=== PATIENT | female | born 1995 | race Asian ===

== ENCOUNTER 2017-04-27 21:34 | Emergency (ER) | payer BC ==
[~2017-04-27] VITALS: Ht 154.9 cm; Wt 51.2 kg
[2017-04-27 21:38] VITALS: TEMP 37; Ht 154.9 cm; Wt 51.2 kg
[2017-04-27] MEDS ORDERED: MACROBID 100MG HOME PACK 1 EA VIAL PO ONE (22:15)
[2017-04-27] MEDS ORDERED: PHENAZOPYRIDINE HOME PACK 200 MG VIAL PO ONE (22:15)
[2017-04-27] MEDS ORDERED: MACROBID 100MG HOME PACK 1 EA VIAL ONE (22:16)
[2017-04-27] MEDS ORDERED: NITR-5 PO (22:22)
[2017-04-27] MEDS ORDERED: PHEN-876 PO (22:22)
--- NOTE | 2017-04-27 22:23 | EMERGENCY ROOM VISIT NOTE ---
History First contact with patient: 21:43 Chief Complaint: DYSURIA Stated Complaint: BURNING SENSATION WHEN PEEING Nursing Triage Summary: pt states burning during urination x 3 days, pt denies frequency or urgency, pt states no abdominal pain. History of Present Illness The patient is a 22 year old female who presents to the Emergency Room with complaints of dysuria which started 3 days ago. The patient reports that she has had burning with urination for the past 3 days. She states she has been having chills but denies fevers. She has had some feelings of incomplete emptying. She denies abdominal pain or back pain. She does report she recently became sexually active with her boyfriend. She denies any history of urinary tract infections. She denies any abnormal vaginal discharge or blood in the urine. Review of Systems A complete 10 point review of systems was reviewed with the patient with pertinent positives and negatives as per history of present illness. All else were negative. Social History Smoking Status: Never Smoker Current/Historical Medications Scheduled Nitrofurantoin Monohyd Macrocr (Macrobid), 100 MG PO BID Phenazopyridine HCl (Pyridium), 200 MG PO TID Physical Exam Vital Signs Date Time Temp Pulse Resp B/P (MAP) Pulse Ox O2 Delivery O2 Flow Rate FiO2 04/27/17 21:38 37.0 76 18 113/67 97 Room Air Physical Exam VITALS: Vitals are noted on the nurse's note and reviewed by myself. Vital signs stable. GENERAL: This is a 22-year-old female, in no acute distress, nondiaphoretic, well-developed well-nourished. HEART: Regular rate and rhythm without murmurs gallops or rubs. LUNGS: Clear to auscultation bilaterally without wheezes, rales or rhonchi. ABDOMEN: Soft, nontender to palpation. NEURO: Patient was alert and oriented to person place and time. Medical Decision & Procedures Laboratory Results Test 04/27/17 21:58 Urine Test NEG (NEG) Medications Administered Medications (Trade) Dose Ordered Sig/Ender Route Start Time Stop Time Status Last Admin Dose Admin Nitrofurantoin (Macrobid Homepack 100MG) 1 homepack UD ONCE PO 04/27/17 22:15 04/27/17 22:16 DC 04/27/17 22:19 1 HOMEPACK Phenazopyridine HCl (Phenazopyridine HCl 200MG Home Pack) 1 homepack UD ONCE PO 04/27/17 22:15 04/27/17 22:16 DC 04/27/17 22:19 1 HOMEPACK Medical Decision Differential diagnosis includes urinary tract infection, vaginal infection, urethritis, among others. The patient was evaluated as above. Urine dip showed leukocytes. Symptoms are consistent with urinary tract infection. Patient will be placed on Macrobid. She was given Pyridium for symptomatic relief. She was instructed to return for vomiting, back pain, abdominal pain or fevers. She verbalized understanding of my assessment and treatment plan and was discharged home in good condition. Medication Reconcilliation Current Medication List: was personally reviewed by me Blood Pressure Screening Patient's blood pressure: Normal blood pressure Impression Primary Impression: Urinary tract infection Departure Information Dispostion Home / Self-Care Condition GOOD Prescriptions Phenazopyridine HCl (Pyridium) 200 Mg Tab 200 MG PO TID for 2 Days, #6 TAB Prov: Mary Rodriguez .DIANE 04/27/17 Nitrofurantoin Monohyd Macrocr (Macrobid) 100 Mg Cap 100 MG PO BID for 6 Days, #12 CAP Prov: Mary Rodriguez .DIANE 04/27/17 Referrals No Doctor, Assigned (PCP) Patient Instructions My [facility] Additional Instructions You have been treated in the Emergency Department for a Urinary Tract Infection (UTI). You have been prescribed Macrobid to be taken twice daily for a total of 7 days. This is an antibiotic. All antibiotics have the potential to cause diarrhea. Stop this medication and contact a medical provider if you were to develop any significant adverse side effects including: wheezing, shortness of breath, passing out, vomiting, or a diffuse rash. Always take antibiotics as directed and COMPLETE the ENTIRE course regardless of the improvement of your symptoms. You have been prescribed Pyridium to be taken as prescribed. This medicine will help with the urinary symptoms that you have been experiencing. Be aware that Pyridium may turn your urine a red-orange or brown color. This effect is harmless. Drink plenty of water and stay well hydrated. As with any trip to the Emergency Department, you should follow-up with your Primary Care Provider from today's visit. Return to the emergency department if your symptoms persist despite treatment plan outlined above or if the following symptoms occur: increased fevers, chills , low back pain, nausea/vomiting, or blood in your urine. Problem Qualifiers Primary Impression: Urinary tract infection Urinary tract infection type: acute cystitis Hematuria presence: with hematuria Qualified Codes: N30.01 - Acute cystitis with hematuria
[2017-04-27 22:29] VITALS: BP 113/67; PULSE 76; O2SAT 97
== END 2017-04-27 22:29 | disposition home or self-care (01) ==
LOC: C.EDB 21:37 → C.EDA 22:29
DX: N39.0 Urinary tract infection, site not specified (principal)

== ENCOUNTER 2017-07-08 17:17 | Emergency (ER) | payer BC, OTHER ==
[~2017-07-08] VITALS: Ht 157.5 cm; Wt 50.0 kg
[2017-07-08 17:21] VITALS: TEMP 36.6; Ht 157.5 cm; Wt 50.0 kg
[2017-07-08] MEDS ORDERED: BCPILLS PO (17:46)
[2017-07-08] MEDS ORDERED: IBUP-1050 PO (17:46)
[2017-07-08] MEDS ORDERED: PHEN-876 PO (18:40)
[2017-07-08] MEDS ORDERED: NITR-5 PO (18:40)
--- NOTE | 2017-07-08 18:41 | EMERGENCY ROOM VISIT NOTE ---
ED Visit Note First contact with patient: 17:28 CHIEF COMPLAINT: Frequent and painful urination for 1 day HISTORY OF PRESENT ILLNESS: Patient is a 22-year-old female who presents to the emergency department for burning with urination and urinary frequency. Her symptoms started last evening. She states that she went to the bathroom, then immediately felt the urge that she needed to urinate again. Since then she has had burning with urination. She is on control pills and is presently menstruating, is unsure whether she has any hematuria. She denies any difficulty urinating, fever, chills, nausea, vomiting or vaginal discharge. She is sexually active, occasionally uses a condom and is not concerned regarding any sexually transmitted infections. She states she was treated for similar symptoms last April. REVIEW OF SYSTEMS: Review of systems as per HPI. All other systems reviewed were negative. At least 6 systems reviewed. PMH: Electronic medical records are reviewed and summarized as above/below. See Problem List. SOCIAL HISTORY: Patient is a college student, lives locally. Former smoker. PHYSICAL EXAM: Vital Signs: Reviewed Nurse's notes. CONSTITUTIONAL: Patient is a well-appearing 22-year-old female who is awake and alert and in no acute distress. HEART: Regular rate and rhythm. LUNGS: Clear to auscultation. ABDOMEN: Bowel sounds are present. Abdomen is soft, nontender nondistended. No guarding or rebound. No CVA tenderness. EMERGENCY DEPARTMENT COURSE: Urine dip shows WBCs and hematuria. Nitrate test is negative. Urine test is negative. Patient did well on Macrobid and Pyridium last year. Conservative care measures were discussed. She was educated on the worrisome signs or symptoms for which she should return to the emergency department. Differential diagnoses entertained included UTI, cystitis , pyelonephritis, renal colic, vaginitis, PID, STI, among others. Medication reconciliation: I attest that I have personally reviewed the patient' s current medication list. Blood pressure screening : Patient was found to have normal blood pressure on screening and does not require follow-up. Problem List Medical Problems: (1) Urinary tract infection Status: Resolved Current/Historical Medications Scheduled Control Pills ( Control Pills), 1 TAB PO DAILY Nitrofurantoin Monohyd Macrocr (Macrobid), 100 MG PO BID Phenazopyridine HCl (Pyridium), 200 MG PO TID Scheduled PRN Ibuprofen (Advil), 400 MG PO BID PRN for Pain Allergies Coded Allergies: No Known Allergies (Unverified , 07/08/17) Vital Signs Date Time Temp Pulse Resp B/P (MAP) Pulse Ox O2 Delivery O2 Flow Rate FiO2 07/08/17 18:47 82 18 107/68 98 07/08/17 17:21 36.6 81 18 110/74 97 Room Air Laboratory Results Test 07/08/17 17:45 Urine Test NEG (NEG) Departure Information Impression Primary Impression: Urinary tract infection Prescriptions Phenazopyridine HCl (Pyridium) 200 Mg Tab 200 MG PO TID, #12 TAB Prov: Betsey Negro PA 07/08/17 Nitrofurantoin Monohyd Macrocr (Macrobid) 100 Mg Cap 100 MG PO BID, #14 CAP Prov: Betsey Negro PA 07/08/17 Referrals No Doctor, Assigned (PCP) Patient Instructions My [facility] Additional Instructions Macrobid(macrodantin) 100mg: Take one pill twice daily for 7 days for your urine infection. All antibiotics can cause diarrhea. If this occurs and you feel worse or it does not resolve in 1-2 days follow up with your doctor or return to the Emergency Department as this could be signs of serious underlying problems. Any medication can cause an allergic reaction, stop the pills immediately and return to the ER for rash, hives, breathing difficulties, or swelling. Pyridium 200mg: Take one pill three times daily as needed for urinary discomfort. This medication will turn your urine orange. This is normal and nothing to be concerned about. Ibuprofen(Motrin, Advil) may be used for fever or pain. Use 600mg every six hours as needed. Take with food. Avoid using more than 2400mg in a 24 hour period. Do not use 2400mg per day for more than three consecutive days without physician direction. Prolonged inappropriate use can lead to stomach upset or ulcers. This is available over the counter and typically comes in 200mg tablets. (AND/OR) Acetaminophen(Tylenol) may be used for fever or pain. Use 1000mg every eight hours as needed. Avoid using more than 3000mg in a 24 hour period. This is available over the counter. Read all the package inserts or medication information paperwork provided. If you have any questions or concerns call your primary provider, pharmacist or the ER for assistance. Rest and drink plenty of fluids. Continue current medications. Return to the ER immediately for worsening or persistent abdominal pain, vomiting, fevers, back or flank pain, worsening of your condition, or as needed. Follow up with your primary physician within 2-3 days for a recheck of the current condition.
[2017-07-08 18:47] VITALS: BP 107/68; PULSE 82; O2SAT 98
== END 2017-07-08 18:47 | disposition home or self-care (01) ==
LOC: C.EDB 17:19 → C.EDD 18:47
DX: N39.0 Urinary tract infection, site not specified (principal); Z79.3 Long term (current) use of hormonal contraceptives; Z87.891 Personal history of nicotine dependence

== ENCOUNTER 2017-08-24 21:26 | Emergency (ER) | payer BC ==
[~2017-08-24] VITALS: Ht 157.5 cm; Wt 50.2 kg
[~2017-08-24 21:26] MED LIST: BCPILLS PO; IBUP-1050 PO; NITR-5 PO; PHEN-876 PO
[2017-08-24 21:28] VITALS: TEMP 36.8; Ht 157.5 cm; Wt 50.2 kg
--- NOTE | 2017-08-24 21:59 | EMERGENCY ROOM VISIT NOTE ---
History First contact with patient: 21:32 Chief Complaint: WRIST PAIN Stated Complaint: PAIN IN WRIST, SORE LEG REALLY BAD COUGH History of Present Illness The patient is a 22 year old female who presents to the Emergency Room with multiple complaints. The patient reports that she has had a cough for 3 weeks. She states that the first week, the cough was a dry, persistent cough. She states that she then developed cold symptoms, including nasal congestion. She reports that that has resolved, however she still has a persistent cough. She saw her primary care provider told her that she most likely had allergies. She denies any shortness of breath or fever. The patient additionally reports that her left wrist has been slightly sore today. She states there is pain when pressing on the wrist and when moving the wrist. She rates the discomfort as 7/ 10. She denies any recent activity or injury to the wrist. She denies numbness or weakness. The patient also states she has some pain in the back of the right calf. She noticed some soreness last night. She denies any swelling. She takes control pills. She is not a smoker and has no history of blood clots. She denies recent travel. Review of Systems A complete 6 point review of systems was reviewed with the patient with pertinent positives and negatives as per history of present illness. All else were negative. Past Medical/Surgical History Medical Problems: (1) No Known Active Medical Problems (2) Urinary tract infection Social History Smoking Status: Never Smoker Alcohol Use: occasionally Housing Status: lives with roommate Occupation Status: [employer] student Current/Historical Medications Scheduled Control Pills ( Control Pills), 1 TAB PO DAILY Scheduled PRN Benzonatate (Tessalon Perles), 200 MG PO TID PRN for Cough Ibuprofen (Advil), 400 MG PO BID PRN for Pain Physical Exam Vital Signs Date Time Temp Pulse Resp B/P (MAP) Pulse Ox O2 Delivery O2 Flow Rate FiO2 08/24/17 22:57 66 16 107/60 97 Room Air 08/24/17 21:28 36.8 82 16 113/70 97 Room Air Physical Exam VITALS: Vitals are noted on the nurse's note and reviewed by myself. Vital signs stable. GENERAL: This is a 22-year-old female, in no acute distress, nondiaphoretic, well-developed well-nourished. SKIN: The skin was without rashes. HEAD: Normocephalic atraumatic. EARS: External auditory canals clear, tympanic membranes pearly young without erythema or effusion bilaterally. EYES: Pupils equal round and reactive to light and accommodation. MOUTH: Mucous membranes moist. Tonsils are not enlarged. Pharynx without erythema or exudate. NECK: Supple without nuchal rigidity. No lymphadenopathy. HEART: Regular rate and rhythm without murmurs gallops or rubs. LUNGS: Clear to auscultation bilaterally without wheezes, rales or rhonchi. No retractions or accessory muscle use. MUSCULOSKELETAL: There is mild tenderness to palpation of the left wrist. Full range of motion of the wrist. Full range of motion of the fingers. Normal sensation. Capillary refill within 2 seconds. EXTREMITIES: No swelling of the right lower extremity. There is minimal tenderness on exam. No erythema or palpable cords. NEURO: Patient was alert and oriented to person place and time. Normal sensation. Medical Decision & Procedures ER Provider Diagnostic Interpretation: CHEST 2 VIEWS ROUTINE FINDINGS: The lungs are clear. Cardiac silhouette is normal in size. No pleural effusions. No pneumothorax. IMPRESSION: No acute process. LEFT WRIST 4 VIEWS FINDINGS: There is no fracture or dislocation. Soft tissues are unremarkable. No radiopaque foreign bodies. IMPRESSION: No fractures. RIGHT LOWER EXTREMITY VENOUS DOPPLER FINDINGS: There is normal compressibility, flow, and augmentation within the right lower extremity deep venous system. IMPRESSION: No DVT within the right lower extremity Medical Decision Differential diagnosis includes upper respiratory infection, pneumonia, postnasal drip, asthma, arthritis, fracture, sprain, DVT, superficial thrombosis , among others. The patient was evaluated as above. Chest x-ray was performed and showed no evidence of pneumonia. Patient has had a cough for several weeks which her PCP felt was due to allergies. Patient was advised to take an antihistamine with decongestant dxup-apy-ghoegwa, which may improve symptoms. She was given a prescription for Tessalon Perles. An x-ray of the left wrist was performed and read by radiology with no acute findings. Ultrasound of the leg showed no DVT. Patient was reassured. She was instructed to take ibuprofen for pain. She will follow-up with [facility] for recheck. She verbalized understanding of my assessment and treatment plan and was discharged home in good condition. Medication Reconcilliation Current Medication List: was personally reviewed by me Blood Pressure Screening Patient's blood pressure: Normal blood pressure Impression Primary Impression: Cough Additional Impressions: Left wrist pain Right calf pain Departure Information Dispostion Home / Self-Care Condition GOOD Prescriptions Benzonatate (Tessalon Perles) 200 Mg Cap 200 MG PO TID Y for Cough, #30 CAP Prov: Mary Rodriguez .DIANE 08/24/17 Referrals No Doctor, Assigned (PCP) Patient Instructions My [facility] Additional Instructions Tessalon Perles 3 times daily as needed for cough. You may also take hhat-yfc-lheybxb antihistamines with decongestant such as Claritin-D, Mary-D or Zyrtec-D for your symptoms. For pain control, you can use the following bzii-ijm-[id number] medicines (if >12 yo): - Regular strength (325mg/tab) Tylenol (acetaminophen) 2 tabs every 4-6 hours as needed. Do not exceed 12 tablets in a 24 hour period. Avoid taking more than 4 grams (4000 mg) of Tylenol per day. This includes any other sources of acetaminophen you may take on a regular basis. - Regular strength (200 mg/tab) Advil (ibuprofen) 1-2 tabs every 4-6 hours as needed. Do not exceed a dose of 3200 mg per day. If you have persistent pain in the wrist or calf, follow-up with orthopedics. Follow-up with [facility] as needed. Return to the emergency department with any worsening or new/concerning symptoms. Problem Qualifiers
--- NOTE | 2017-08-24 22:14 | DIAGNOSTIC IMAGING REPORT ---
RIGHT LOWER EXTREMITY VENOUS DOPPLER HISTORY: right calf pain, on BCPs COMPARISON STUDY: None. FINDINGS: There is normal compressibility, flow, and augmentation within the right lower extremity deep venous system. IMPRESSION: No DVT within the right lower extremity Electronically signed by: Harjit Rodas M.D. 08/24/2017 10:12 PM Dictated Date/Time: 08/24/2017 10:12 PM
--- NOTE | 2017-08-24 22:39 | DIAGNOSTIC IMAGING REPORT ---
LEFT WRIST 4 VIEWS HISTORY: left wrist pain, no injury COMPARISON: None. FINDINGS: There is no fracture or dislocation. Soft tissues are unremarkable. No radiopaque foreign bodies. IMPRESSION: No fractures. Electronically signed by: Harjit Rodas M.D. 08/24/2017 10:37 PM Dictated Date/Time: 08/24/2017 10:29 PM
--- NOTE | 2017-08-24 22:42 | DIAGNOSTIC IMAGING REPORT ---
CHEST 2 VIEWS ROUTINE HISTORY: persistent cough COMPARISON: None. FINDINGS: The lungs are clear. Cardiac silhouette is normal in size. No pleural effusions. No pneumothorax. IMPRESSION: No acute process. Electronically signed by: Harjit Rodas M.D. 08/24/2017 10:40 PM Dictated Date/Time: 08/24/2017 10:37 PM
[2017-08-24 22:57] VITALS: BP 107/60; PULSE 66; O2SAT 97
[2017-08-24] MEDS ORDERED: BENZ1CAP90 PO (22:59)
== END 2017-08-24 23:08 | disposition home or self-care (01) ==
LOC: C.EDB 21:27 → C.EDD 23:08
DX: R05 Cough (principal); M25.532 Pain in left wrist; M79.661 Pain in right lower leg; Z79.3 Long term (current) use of hormonal contraceptives; Z87.440 Personal history of urinary (tract) infections